=== PATIENT | male | born 1985 | race Two or more races ===

== ENCOUNTER 2024-10-10 14:37 | Emergency (ER) | payer OTHER ==
[~2024-10-10] VITALS: Ht 170.2 cm; Wt 81.6 kg
[2024-10-10] MEDS ORDERED: KETOROLAC TROMETHAMINE 30 MG VIAL IM STA (18:56)
[2024-10-10] MEDS ORDERED: KETOROLAC TROMETHAMINE 30 MG VIAL ONE (18:58)
[2024-10-10 19:17] LABS: BASO % 0.4 % (0.1-1.2); EOS # 0.11 (0.04-0.54); HEMOGLOBIN 14.2 g/dL (13.7-17.5); LYMPH # 2.06 (1.18-3.74); LYMPH % 18.1 % (19.3-53.1); MONO # 0.86 (0.24-0.82); MONO % 7.6 % (4.7-12.5); NEUT # 8.28 (1.56-6.13); NEUT % 72.7 % (34.0-71.1); PLATELET COUNT 281 K/uL (163-369); RED BLOOD COUNT 5.47 M/uL (4.63-6.08); RED CELL DISTRIBUTION WIDTH 14.9 % (11.6-14.4)
[2024-10-10 19:37] LABS: CALCIUM 8.9 mg/dL (8.5-10.1); CREATININE SERUM 1.02 mg/dL (0.70-1.30); GFR 80.89; POTASSIUM 3.91 mEq/L (3.5-5.1)
[2024-10-10 20:49] LABS: PH,URINE 5.5 (5.0-8.0); URINE APPEARANCE Clear; URINE BILIRRUBIN Negative (NEGATIVE); URINE BLOOD Trace; URINE COLOR Yellow; URINE GLUCOSE Negative (NEGATIVE); URINE KETONE Negative (NEGATIVE); URINE LEUKOCYTE Trace; URINE NITRATE Negative; URINE PROTEIN Negative (NEGATIVE); URINE UROBILINOGEN 0.2 E.U./dl
[2024-10-10 20:53] LABS: URINE BACTERIA 12.2 uL (0.0-1933); URINE RBC 2.2 uL (0.0-20.8); URINE WBC 13.5 uL (0.0-23.2)
[2024-10-10 20:58] LABS: URINE CAST 0.14 uL (0.0-1.40); URINE EPITHELIAL CELLS 0.4 uL (0.0-38.8)
[2024-10-10] MEDS ORDERED: DICLOFENAC POTA50 MG PO (21:41)
== END 2024-10-10 21:52 | disposition home or self-care (01) ==
LOC: ER 16:19
PROVIDERS: General Practice
DX: N43.3 Hydrocele, unspecified (principal)